=== PATIENT | male | born 1985 | race Caucasian/White ===

== ENCOUNTER 2025-02-12 20:12 | Emergency (ER) | payer BC, OTHER | END 2025-02-12 21:30 | disposition home or self-care (01) | LOC: BURERS 20:12 | DX: S16.1XXA Strain of muscle, fascia and tendon at neck level, initial encounter (principal); V49.40XA Driver injured in collision with unspecified motor vehicles in traffic accident, initial encounter | CPT/HCPCS: 70450; 71045; 72125 ==